=== PATIENT | female | born 1980 | race African-American/Black ===

== ENCOUNTER 2018-08-14 05:20 | Emergency (ER) | payer OTHER ==
[~2018-08-14] VITALS: Ht 170.2 cm; Wt 83.9 kg
[2018-08-14 05:25] VITALS: BP 104/66
--- NOTE | 2018-08-14 05:40 | NUR ---
PT BIB self for ABD pain x9 hours. PT reports sharp ABD pain midline ABD. ABD is flat, tender to touch, with bowel sounds active x4 quadrants. PT reports N/V/D since last night. PT denies fever. ER MD to see PT. Bed rails up, bed in lowest position, will continue to monitor. PT deneis past medical history.
[2018-08-14] MEDS ORDERED: NACL 0.9% 1,000 ML IV ONE (05:46)
[2018-08-14] MEDS ORDERED: MORPHINE SULFATE 4 MG/ML SYR IVP ONE (05:50)
[2018-08-14] MEDS ORDERED: ONDANSETRON 4 MG/2 ML VIAL IVP ONE (05:50)
--- NOTE | 2018-08-14 06:11 | NUR ---
UA DONE, HCG NEG, BLOOD SENT TO LAB.
[2018-08-14 06:17] LABS: BASOPHILS % (AUTO) 0.2 % (0.0-2.0); EOSINOPHILS % (AUTO) 0.4 % (0.0-4.0); HEMOGLOBIN 14.8 g/dL (12.0-16.0); LYMPHOCYTES # (AUTO) 0.5 K/uL (2.5-16.5); MEAN CORPUSCULAR HEMOGLOBIN 27 pg (27-31); MEAN CORPUSCULAR HGB CONC 33 g/dL (33-37); MEAN CORPUSCULAR VOLUME 81.4 fL (80-94); MONOCYTES # (AUTO) 0.4 K/uL (0.8-1.0); MONOCYTES % (AUTO) 4.8 % (1.7-9.3); NEUTROPHILS # (AUTO) 7.8 K/uL (1.8-7.7); NEUTROPHILS % (AUTO) 88.6 % (42.2-75.2); PLATELET COUNT (AUTO) 260 K/uL (140-450); RED BLOOD CELL COUNT(AUTO) 5.52 MIL/uL (4.20-5.40); RED CELL DISTRIBUTION WIDTH 13.5 % (11.6-13.7); WHITE BLOOD COUNT (AUTO) 8.9 K/uL (4.8-10.8)
--- NOTE | 2018-08-14 06:23 | NUR ---
PT is going to CT at this time. PT stated ABD pain has decreased to 5/10, and currently has no nausea.
[2018-08-14] MEDS ORDERED: KETOROLAC 30 MG/ML VIAL IVP ONE (06:25)
[2018-08-14 06:28] LABS: ANION GAP 12.3 (8-16); CREATININE 1.2 mg/dL (0.6-1.3); POTASSIUM 4.3 mmol/L (3.5-5.1)
[2018-08-14 06:34] LABS: ALBUMIN 4.2 g/dL (3.4-5.0); TOTAL BILIRUBIN 0.7 mg/dL (0.0-1.0)
--- NOTE | 2018-08-14 06:35 | NUR ---
PT returned from CT at this time.
[2018-08-14] MEDS ORDERED: KETOROLAC 15 MG/ML VIAL ONE (06:44)
--- NOTE | 2018-08-14 07:09 | NUR ---
GAVE REPORT TO MIKE OLIVEIRA.
--- NOTE | 2018-08-14 07:10 | NUR ---
RECIEVED REPORT FROM ROXANNE CORTÉS. PATIENT STABLE AND STATED NO NEEDS AT THIS TIME.
[2018-08-14 07:34] LABS: BILIRUBIN,URINE NEGATIVE (NEGATIVE); BLOOD, URINE NEGATIVE (NEGATIVE); COLOR,URINE YELLOW (YELLOW); LEUKOCYTE ESTERASE ,URINE NEGATIVE (NEGATIVE); NITRITE, URINE NEGATIVE (NEGATIVE); PH,URINE 7.5 (5.0-9.0); UGLUCOSE NEGATIVE (NEGATIVE)
[2018-08-14 07:37] LABS: APPEARANCE,URINE SLIGHTLY HAZY (CLEAR)
[2018-08-14 07:38] LABS: RBC,URINE 0-5 (RARE) /HPF (0-5); WBC,URINE 0-5 (RARE) /HPF (0-5)
[2018-08-14] MEDS ORDERED: DICYCLOMINE 20 MG/2 ML VIAL IM ONE (08:00)
[2018-08-14 08:17] VITALS: BP 110/77
--- NOTE | 2018-08-14 08:18 | NUR ---
Patient discharged with v/s stable. Written and verbal after care instructions given and explained. Patient alert, oriented and verbalized understanding of instructions. Ambulatory with steady gait. All questions addressed prior to discharge. ID band removed. Patient advised to follow up with PMD. Rx of FLAGYL, ZOAN, BENTYL, NORCO given. Patient educated on indication of medication including possible reaction and side effects. Opportunity to ask questions provided and answered.
== END 2018-08-14 08:18 | disposition home or self-care (01) ==
LOC: MED 05:20
DX: R10.9 Unspecified abdominal pain (principal); R11.2 Nausea with vomiting, unspecified; R19.7 Diarrhea, unspecified; Z88.1 Allergy status to other antibiotic agents
CPT/HCPCS: 36415; 74176; 80053; 81001; 81025; 83690; 85025; 96361; 96372; 96374; 96375; 99284; J0500; J1885; J2270; J2405; J7030